=== PATIENT | female | born 1955 | race Caucasian/White ===

== ENCOUNTER 2017-02-05 08:35 | Day surgery (SDC) | payer BC ==
--- NOTE | ~2017-02-05 | EGD ---
EGD REPORT [facility] [address] [address] NAME: STEVE CRUZ : [birth year] STATUS : REG [facility] PAT#: [id number] AGE: 61 ADM/REG DATE : 02/05/17 MR#: [id number] REPORT SERV DATE: 02/05/17 DICTATED BY: BARBI PIZARRO DATE: 02/05/17 REPORT STATUS : Draft TRANSCRIBED BY: [employer] DATE: 02/05/17 [facility] Patient Name: Steve Cruz Date of : 1955 Attending MD: BARBI PIZARRO MD Procedure Date No Time: 02/05/2017 Procedure: Colonoscopy Indications: Colon cancer screening in patient at increased risk: Family history of colon polyps Referring MD: Coral Rendon MD Medicines: Monitored Anesthesia Care Complications: No immediate complications. Procedure: Pre-Anesthesia Assessment: - ASA Grade Assessment: II - A patient with mild systemic disease. After I obtained informed consent, the scope was passed under direct vision. Throughout the procedure, the patient's blood pressure, pulse, and oxygen saturations were monitored continuously. The CF [id number] was introduced through the anus and advanced to the terminal ileum, with identification of the appendiceal orifice and IC valve. The colonoscopy was performed without difficulty. The patient tolerated the procedure well. The quality of the bowel preparation was adequate. Findings: The digital rectal exam was normal. Pertinent negatives include no palpable rectal lesions. Hemorrhoids were found during endoscopy and were mild. Two sessile polyps were found in the cecum. The polyps were 3 to 4 mm in size. These polyps were removed with a cold biopsy forceps. Resection and retrieval were complete. A sessile polyp was found in the ascending colon. The polyp was 3 mm in size. The polyp was removed with a cold biopsy forceps. Resection and retrieval were complete. The terminal ileum appeared normal. Impression: - Hemorrhoids. - Two 3 to 4 mm polyps in the cecum. Resected and retrieved. - One 3 mm polyp in the ascending colon. Resected and retrieved. Recommendation: - Patient has a contact number available for emergencies. The signs and symptoms of potential delayed EGD REPORT [address] [address] NAME: STEVE CRUZ : [birth year] STATUS : REG [facility] PAT#: [id number] AGE: 61 ADM/REG DATE : 02/05/17 MR#: [id number] REPORT SERV DATE: 02/05/17 DICTATED BY: BARBI PIZARRO DATE: 02/05/17 REPORT STATUS : Draft TRANSCRIBED BY: [employer] DATE: 02/05/17 complications were discussed with the patient. Return to normal activities tomorrow. Written discharge instructions were provided to the patient. - Regular diet. - Continue present medications. - Repeat colonoscopy in 5 years for surveillance based on pathology results. - Return to GI clinic PRN. Procedure Code(s): --- Professional --- 64491, Colonoscopy, flexible, proximal to splenic flexure; with biopsy, single or multiple Diagnosis Code(s): --- Professional --- K64.9, Unspecified hemorrhoids D12.2, Benign neoplasm of ascending colon D12.0, Benign neoplasm of cecum Z12.11, Encounter for screening for malignant neoplasm of colon Z83.71, Family history of colonic polyps CPT copyright 2013 [employer]. All rights reserved. The codes documented in this report are preliminary and upon nuclear weapons mechanical specialist review may be revised to meet current compliance requirements. BARBI PIZARRO MD 02/05/2017 11:05 AM This report has been signed electronically. Number of Addenda: 0 Note Initiated On: 02/05/2017 10:27 AM Scope Withdrawal Time 0 hours 14 minutes 31 seconds [id number] [place] [id number]
[~2017-02-05 08:35] MED LIST: ADVAIR250 INH; BRIMONIDINE0.2 % OPH; M-CLEAR WC PO; PRILOSEC40 MG PO; PROAIR HFA INH; SPRINTEC 2828 DAY PO; ZOCOR40 PO; ZYRTEC ALLGY10 MG PO
== END 2017-02-05 23:59 | disposition home or self-care (01) ==
LOC: DMU 08:35
PROVIDERS: Internal Medicine Gastroenterology
PROC: 0DBK8ZX Excision of Ascending Colon, Via Natural or Artificial Opening Endoscopic, Diagnostic (ICD-10-PCS; 2017-02-05)
PROC: 0DBH8ZX Excision of Cecum, Via Natural or Artificial Opening Endoscopic, Diagnostic (ICD-10-PCS; principal; 2017-02-05 10:00)
DX: Z12.11 Encounter for screening for malignant neoplasm of colon (principal); D12.0 Benign neoplasm of cecum; D12.2 Benign neoplasm of ascending colon; K64.9 Unspecified hemorrhoids; E78.00 Pure hypercholesterolemia, unspecified; J45.909 Unspecified asthma, uncomplicated; K21.9 Gastro-esophageal reflux disease without esophagitis; Z83.71 Family history of colonic polyps; Z79.899 Other long term (current) drug therapy; Z90.89 Acquired absence of other organs; Z98.890 Other specified postprocedural states
CPT/HCPCS: 88305